=== PATIENT | female | born 1935 | race Caucasian/White ===

== ENCOUNTER 2016-10-05 23:11 | Emergency (ER) | payer MEDICARE ==
[~2016-10-05] VITALS: Ht 154.9 cm; Wt 65.8 kg
[2016-10-05] MEDS ORDERED: ATENOLOL25 MG ORAL (23:12)
[2016-10-05] MEDS ORDERED: HYDROCHLOROTH12.5 M2 ORAL (23:12)
[2016-10-05] MEDS ORDERED: ECOTRIN325 MG ORAL (23:12)
[2016-10-05 23:16] VITALS: BP 170/87
[2016-10-05 23:45] LABS: EOSINOPHILS % (AUTO) 1.6 % (0.0-3.0); LYMPHOCYTES % (AUTO) 34.2 % (20.0-45.0); MEAN CORPUSCULAR HEMOGLOBIN 29.1 PG (27.0-31.0); MEAN CORPUSCULAR HGB CONC 32.7 G/DL (32.0-36.0); MEAN CORPUSCULAR VOLUME 89 FL (80-99); MEAN PLATELET VOLUME 7.7 FL (6.5-10.1); MONOCYTES % (AUTO) 12.5 % (1.0-10.0); NEUTROPHILS % (AUTO) 50.7 % (45.0-75.0); PLATELET COUNT 260 K/UL (150-450); RED BLOOD COUNT 5.07 M/UL (4.20-5.40); RED CELL DISTRIBUTION WIDTH 13.3 % (11.6-14.8); WHITE BLOOD COUNT 6.9 K/UL (4.8-10.8)
[2016-10-05 23:54] LABS: PROTHROMBIN TIME 10.3 SEC (9.30-11.50)
[2016-10-05 23:56] LABS: ALANINE AMINOTRANSFERASE 31 U/L (3-33); ALBUMIN/GLOBULIN RATIO 1.4 (1.0-2.7); ANION GAP 15 (5-15); ASPARTATE AMINO TRANSFERASE 24 U/L (5-40); CALCIUM 9.5 mg/dL (8.6-10.2); CARBON DIOXIDE 28 mEQ/L (20-30); CHLORIDE 100 mEQ/L (98-107); CREATININE 1.2 mg/dL (0.5-0.9); HEMOLYSIS 3; POTASSIUM 4.1 mEQ/L (3.4-4.9); SODIUM 143 mEQ/L (135-145); TOTAL PROTEIN 7.3 g/dL (6.6-8.7)
--- NOTE | 2016-10-05 23:56 | Emergency Room Report ---
History of Present Illness General Chief Complaint: Stroke Symptoms Source: Patient Present Illness HPI This is an 81-year-old female with a history of meningioma. She said the meningioma affect her fifth sixth and seventh nerve on the right side. She is currently taking a baby aspirin. She presents with acute onset of right facial droop and slurred speech. By the time recreational therapy technician got there he was improving. Now he thinks his back to normal. Denies any other complaint. No weakness to her arms or leg. Never had this problem before. No chest pain. No arrhythmia. Allergies: Coded Allergies: No Known Allergies (Unverified , 10/05/16) Patient History Past Medical History: see triage record, old chart reviewed Past Surgical History: other Pertinent Family History: none Social History: Denies: smoking Last Menstrual Period: n/a Now: No Immunizations: other Reviewed Nursing Documentation: PMH: Agreed, PSxH: Agreed Nursing Documentation-PMH Hx Cancer: Yes - left breast masectomy, brain tumor Review of Systems Eye: Denies: blurred vision, eye pain ENT: Denies: ear pain, nose congestion, throat swelling Respiratory: Denies: cough, shortness of breath Cardiovascular: Denies: chest pain, palpitations Gastrointestinal: Denies: abdominal pain, diarrhea, nausea, vomiting Musculoskeletal: Denies: back pain, joint pain Skin: Denies: rash Neurological: Reports: focal weakness, Denies: headache, numbness Endocrine: Denies: increased thirst, increased urine Hematologic/Lymphatic: Denies: easy bruising All Other Systems: negative except mentioned in HPI Physical Exam Vital Signs Date Time Temp Pulse Resp B/P Pulse Ox O2 Delivery O2 Flow Rate FiO2 10/05/16 23:05 98.8 67 18 170/87 100 Room Air vitals normal except for high blood pressure Sp02 EP Interpretation: reviewed, normal General Appearance: well appearing, no apparent distress, alert Head: normocephalic, atraumatic Eyes: bilateral eye EOMI, bilateral eye PERRL ENT: hearing grossly normal, normal pharynx Neck: full range of motion, supple, no meningismus Respiratory: chest non-tender, lungs clear, normal breath sounds Cardiovascular #1: regular rate, rhythm, no murmur Gastrointestinal: normal bowel sounds, non tender, no mass, no organomegaly, no bruit, non-distended Musculoskeletal: back normal, normal range of motion Neurologic: alert, oriented x3, other - Minimal right droop along the lower lip Psychiatric: mood/affect normal Skin: warm/dry Medical Decision Making Diagnostic Impression: Primary Impression: TIA (transient ischemic attack) Qualified Codes: G45.9 - Transient cerebral ischemic attack, unspecified Additional Impressions: Hypertension Qualified Codes: I10 - Essential (primary) hypertension Meningioma ER Course She presents with symptom concerning for TIA. Symptom resolved now. I gave her an aspirin here. No evidence of any bleeding. I discussed the case with Nestor Nelson who will accept her if for transfer. Patient is otherwise stable. Lab Results Impression labs unremarkable. EKG Diagnostic Results Rate: normal Rhythm: NSR ST Segments: no acute changes Rhythm Strip Diag. Results EP Interpretation: yes Rate: 66 Rhythm: NSR, no PVC's, no ectopy Chest X-Ray Diagnostic Results EP Interpretation: Yes Findings: no consolidation, no effusion, no pneumothorax, no acute cardiopulmonary disease Number of Views: 1 CT/MRI/US Diagnostic Results CT/MRI/US Diagnostic Results : Imaging Test Ordered: ct head Impression read by radiologist. no bleed. calcified mass. Last Vital Signs Date Time Temp Pulse Resp B/P Pulse Ox O2 Delivery O2 Flow Rate FiO2 10/05/16 23:16 98.8 67 18 170/87 100 Room Air Status: improved Disposition: XFER [facility] Condition: Stable Referrals: [facility] (PCP) KRISTEN MCMILLAN M.D. October 05, 2016 23:55
[2016-10-06] VITALS: BP 152/56
[2016-10-06] MEDS ORDERED: Aspirin Baby 81mg ORAL ONE
[2016-10-06 01:00] VITALS: BP 148/64
[2016-10-06 01:14] LABS: APPEARANCE,URINE CLEAR; KETONES,URINE NEGATIVE (NEGATIVE); NITRITE,URINE NEGATIVE (NEGATIVE); PH,URINE 6 (4.5-8.0); PROTEIN,URINE NEGATIVE (NEGATIVE); UROBILINOGEN,URINE NORMAL MG/DL (0.0-1.0)
[2016-10-06 01:32] LABS: LEUKOCYTE ESTERASE ,URINE 2+ (NEGATIVE)
[2016-10-06 01:33] LABS: RBC,URINE 0-2 /HPF (0 - 2); SQUAMOUS EPITHELIAL CELL,UR FEW /LPF (NONE/OCC); WBC,URINE 20-30 /HPF (0 - 2)
[2016-10-06 02:00] VITALS: BP 139/62
[2016-10-06 02:17] VITALS: BP 139/62
--- NOTE | 2016-10-06 08:46 | Diagnostic Imaging Report ---
Indications: Altered mental status Technique: Spiral acquisitions obtained through the brain. Angled axial and coronal 5 x 5 mm slices were reconstructed. Total dose length product 1492 mGycm. CTDI vol(s) 70 mGy. Dose reduction achieved using automated exposure control Comparison: None Findings: There is a right cerebellopontine angle mass which measures 2.6 cm long axis dimension. It is calcified, and the noncalcified components are hyperattenuating relative to brain parenchyma. This appears to be extra-axial, based on the dural surface of the cerebellopontine angle, although the margins are acute. This results in some local mass effect, displacing the brachium pontis posteriorly and medially and shifting the fourth ventricle to the left. There is no underlying parenchymal edema. There is an 8 mm calcified mass protruding into the extra-axial space off of the intertable of the height midline parietal skull, immediately to the left of the falx. This does not result in any significant mass effect and there is no underlying edema. No acute hemorrhage or edema. No other mass effect. No cerebral midline shift. Ventricles and extra-axial CSF spaces are normal in configuration and caliber. There is minimal periventricular chronic deep white matter ischemic change. Impression: 2.6 cm right cerebellopontine angle extra-axial mass, resulting in local mass effect, as described. Most likely a meningioma. Recommend further evaluation contrast MRI 8mm left parasagittal convexity extra-axial mass, which does not result in any significant mass effect Negative for acute intracranial bleed or edema Mild age-related changes, as described This agrees with the preliminary interpretation provided overnight by [facility]. The CT scanner at [facility] is accredited by the [employer] and the scans are performed using protocols designed to limit radiation exposure to as low as reasonably achievable to attain images of sufficient resolution adequate for diagnostic evaluation.
--- NOTE | 2016-10-06 11:33 | Diagnostic Imaging Report ---
Indication: Chest pain Technique: One view of the chest Comparison: none Findings: Inspiration is suboptimal. Lungs and pleural space are clear. Heart size is borderline enlarged. The aorta is tortuous. Impression: Mildly hypoventilatory exam. No definite acute process This agrees with the preliminary interpretation provided by the emergency room physician
== END 2016-10-06 02:15 | disposition short-term general hospital (02) ==
LOC: EDBD 23:11 → EMR 23:30
DX: R29.810 Facial weakness (principal); G45.9 Transient cerebral ischemic attack, unspecified; I10 Essential (primary) hypertension; D32.9 Benign neoplasm of meninges, unspecified; R53.1 Weakness; R47.81 Slurred speech; Z79.82 Long term (current) use of aspirin
CPT/HCPCS: 36415; 70450; 71010; 80053; 81003; 82962; 85025; 85610; 85730; 87086; 93005; 99284